=== PATIENT | female | born 1990 | race Caucasian/White ===

== ENCOUNTER 2019-01-19 14:07 | Observation (INO) | payer SELFPAY ==
[~2019-01-19] VITALS: Ht 165.1 cm; Wt 70.3 kg
== END 2019-01-19 16:26 | disposition home or self-care (01) ==
LOC: 8 EST LDRP 14:07
PROVIDERS: ADMIT Obstetrics & Gynecology; ATTEND Obstetrics & Gynecology
DX: O62.9 Abnormality of forces of labor, unspecified (principal); Z3A.39 39 weeks gestation of pregnancy
CPT/HCPCS: G0378 ×2; 99281